=== PATIENT | male | born 1950 | race Caucasian/White ===

== ENCOUNTER → 2023-06-06 | Outpatient (CLI) | payer MEDICARE ==
--- NOTE | 2023-06-06 14:51 | US ---
EXAMINATION TYPE: US kidneys/renal and bladder DATE OF EXAM: 06/06/2023 COMPARISON: US CLINICAL INDICATION: Male, 73 years old with history of N18.31 CHRONIC KIDNEY DISEASE, STAGE 3A; CKD EXAM MEASUREMENTS: Right Kidney: 10.0 x 5.8 x 5.6 cm Left Kidney: 11.5 x 5.8 x 6.2 cm Right Kidney: Cortical thinning, no evidence of hydro Left Kidney: Cyst upper pole= 3.2 x 2.9 x 3.2 cm/ No evidence of hydro Bladder: wnl Bilateral Jets seen: Yes There is no evidence for hydronephrosis at this point in time. No nephrolithiasis is seen. No solid masses are identified. The urinary bladder is anechoic. Bilateral ureteral jets are seen. IMPRESSION: 1. Simple cyst left kidney. 2. Renal cortical thinning right kidney.
== END | disposition home or self-care (01) ==
LOC: RADUSWWP 14:08
PROVIDERS: ATTEND Family Medicine
DX: N28.1 Cyst of kidney, acquired (principal); N18.31 Chronic kidney disease, stage 3a
CPT/HCPCS: 76770